=== PATIENT | male | born 1960 | race Caucasian/White ===

== ENCOUNTER 2017-11-06 12:22 | Inpatient (IN) | payer OTHER, MEDICARE ==
[~2017-11-06] VITALS: Ht 180.3 cm; Wt 96.4 kg
[2017-11-06 14:30] VITALS: BP 196/93; PULSE 76; RESP 18; TEMP 98; O2SAT 97
[2017-11-06] MEDS ORDERED: SODIUM CHLORIDE 0.9% FLUSH 10 ML FLUSH IV FLUSH PRN (16:45)
[2017-11-06] MEDS ORDERED: NALOXONE HCL 0.4 MG/ML AMP IV PUSH PRN (16:45)
[2017-11-06] MEDS ORDERED: Post-op Orders (for Pharmacy) XX ONE (16:45)
[2017-11-06] MEDS ORDERED: ONDANSETRON HCL 4 MG/2 ML VIAL IV PUSH PRN (16:45)
[2017-11-06] MEDS: ACETAMINOPHEN/HYDROcodone 325 MG/5 MG TAB PO PRN (17:13)
--- NOTE | 2017-11-06 17:33 | MH ---
cc: Sofy Marquez MD DATE OF ADMISSION: 11/06/2017 ADMITTING DIAGNOSES: Peripheral vascular disease, gangrene of the left foot, ischemia of both legs. HISTORY OF PRESENT ILLNESS: This 57-year-old male is referred to me from Dr. Ovalle's office for evaluation for gangrene of the foot. The patient has a very complex history of peripheral vascular disease. He has had problems since early 1999, has had numerous surgeries done in 2-3 hospitals in [place] and then came down here and had several surgeries down here. This included bilateral femoral popliteal bypasses, bilateral fem to distal in situ bypasses, both of those clotted off. The patient had several angioplasties and stents placed into the iliac arteries and distal vessels. Finally, now patient presents with a gangrenous left foot. PAST MEDICAL HISTORY: Also that of hypertension, hyperlipidemia and severe noncompliance with medical therapy. SOCIAL HISTORY: The patient drinks and smokes about 2 packs a day continuously. MEDICATIONS: Can be found in the record, but the patient is very irregular in taking those, has 3 pain management specialists that are managing his pain, 2 in [place] and 1 [place]. On narcotics at home. PHYSICAL EXAMINATION: GENERAL: Reveals a 57-year-old male. HEENT: Head normocephalic. No trauma to the head. Pupils equal, reactive. Extraocular muscles intact. NECK: Bilateral carotid pulses and a right-sided bruit III/. CHEST: Bilateral breath sounds, decreased throughout both lung ribeiro consistent with moderate COPD. HEART: Regular rate and rhythm. ABDOMEN: Soft with active bowel sounds. No masses. No rebound, no guarding, no referred tenderness. No lesions. Pelvis is stable. EXTREMITIES: The patient has no palpable femoral, popliteal, dorsalis pedis or posterior tibial pulses. He has a dopplerable weak dorsalis pedis on the right, very weak posterior tibial on the right and popliteal on the right and femoral pulse I could not even Doppler for some reason. On the left, the patient has a weak dopplerable femoral pulse. He has popliteal pulse which is barely audible and no distal pulses from there. Foot is red with gangrene of the forefoot and osteomyelitis on most recent scan of the metatarsal and tarsal bones. The patient is noncompliant with antibiotics as well. NEUROLOGIC: Grossly intact. IMPRESSION AND RECOMMENDATIONS: A 57-year-old male, noncompliant with medical therapy, severe vasculopath. At this point, there is nothing left to do and the patient requires below-knee amputation. A second opinion was rendered by Dr. Ovalle on 11/05/2017. MD PATRIZIA Ignacio/KEISHA , 05:06 PM , 05:32 PM MTDD
--- NOTE | 2017-11-06 18:23 | HHI.PR ---
Subjective Remarks Discomfort left LE Objective Vital Signs Date Time Temp Pulse Resp B/P (MAP) Pulse Ox O2 Delivery O2 Flow Rate FiO2 11/06/17 14:30 98.0 76 18 196/93 (127) 97 Objective Remarks left red swollen,poor cap refill necrotic dorsum of the foot Assessment and Plan Assessment and Plan Left foot gangrene Osteomyelitis severe vasculopath no DP pulse agree with Kristen Ferrara MD November 06, 2017 18:23
--- NOTE | 2017-11-06 18:30 | RADRPT ---
EXAM DATE: 11/06/2017 6:13 PM EDT AGE/SEX: 57 years / Male INDICATIONS: Evaluate for pneumonia, pneumothorax, or communicable diseases. CLINICAL DATA: This is the patient's initial encounter. Patient reports that signs and symptoms have been present for 1 day and indicates a pain score of 0/10. MEDICAL/SURGICAL HISTORY: None. None. COMPARISON: None. FINDINGS: A single AP view of the chest demonstrates the lungs to be symmetrically aerated without evidence of mass, infiltrate or effusion. The cardiomediastinal contours are unremarkable. Osseous structures a re intact. CONCLUSION: No acute cardiopulmonary disease. Electronically signed by: Inder Armenta MD 11/06/2017 6:28 PM EDT
[2017-11-06] MEDS: MORPHINE SULFATE 4 MG/ML INJ IV PUSH PRN ×2 (18:59→21:06)
[2017-11-06] MEDS: LEVOFLOXACIN 500 MG PREMIX INJ 100 ML IV SCH (19:07)
[2017-11-06] MEDS: SODIUM CHLOR 0.9% 1000 ML INJ 1,000 ML IV SCH (19:08)
[2017-11-06 20:00] VITALS: BP 188/89; PULSE 82; RESP 19; TEMP 97; O2SAT 99
[2017-11-06] MEDS: FAMOTIDINE 20 MG TAB PO SCH (21:05)
[2017-11-06] MEDS: SODIUM CHLORIDE 0.9% FLUSH 10 ML FLUSH IV FLUSH SCH (21:06)
[2017-11-06 22:30] VITALS: BP 171/80; PULSE 76; RESP 18; TEMP 97.5; O2SAT 94
[2017-11-07] VITALS (7 sets, daily range): BP systolic 166–181; BP diastolic 74–84; PULSE 72–94; RESP 18–20; TEMP 97–97.8; O2SAT 93–96
[2017-11-07] MEDS: MORPHINE SULFATE 4 MG/ML INJ IV PUSH PRN ×6 (00:32→23:06)
[2017-11-07 01:53] LABS: BASOPHIL # 0.1 TH/MM3 (0-0.2); BASOPHIL % 1.3 % (0.0-2.0); EOSINOPHIL # 0.2 TH/MM3 (0-0.4); EOSINOPHIL % 3.6 % (0.0-4.0); HEMATOCRIT 45.9 % (39.0-51.0); HEMOGLOBIN 15.6 GM/DL (13.0-17.0); LYMPH % 24.8 % (9.0-44.0); LYMPHOCYTE # 1.7 TH/MM3 (1.0-4.8); MEAN CELL VOLUME 91.1 FL (80.0-100.0); MEAN CORPUSCULAR HEMOGLOBIN 30.9 PG (27.0-34.0); MEAN CORPUSCULAR HGB CONC 33.9 % (32.0-36.0); MEAN PLATELET VOLUME 7.2 FL (7.0-11.0); MONO % 10.9 % (0.0-8.0); MONOCYTE # 0.7 TH/MM3 (0-0.9); NEUT % 59.4 % (16.0-70.0); PLATELET COUNT 263 TH/MM3 (150-450); RED BLOOD COUNT 5.04 MIL/MM3 (4.50-5.90); WHITE BLOOD COUNT 6.8 TH/MM3 (4.0-11.0)
[2017-11-07 02:05] LABS: INTERNATIONAL NORMALIZED RATIO 1.1 RATIO; PROTHROMBIN TIME - PATIENT 10.7 SEC (9.8-11.6)
[2017-11-07 02:06] LABS: BICARBONATE 26.8 MEQ/L (21.0-32.0); CALCIUM 8.1 MG/DL (8.5-10.1); CREATININE 1.04 MG/DL (0.60-1.30)
[2017-11-07 02:10] LABS: DIRECT BILIRUBIN ADULT 0.2 MG/DL (0.0-0.2); INDIRECT BILIRUBIN 0.4 MG/DL (0.0-0.8); TOTAL BILIRUBIN ADULT 0.6 MG/DL (0.2-1.0); TOTAL PROTEIN 6.9 GM/DL (6.4-8.2)
[2017-11-07] MEDS: SODIUM CHLOR 0.9% 1000 ML INJ 1,000 ML IV SCH ×3 (02:45→13:07)
[2017-11-07] MEDS: FAMOTIDINE 20 MG TAB PO SCH ×2 (08:32→21:02)
[2017-11-07] MEDS: SODIUM CHLORIDE 0.9% FLUSH 10 ML FLUSH IV FLUSH SCH ×2 (08:33→21:02)
--- NOTE | 2017-11-07 08:55 | PD.CONS ---
HPI Service [facility] Consult Requested By Reason for Consult medical management Primary Care Physician Unknown Diagnoses: History of Present Illness patient is a 57 y/o male with history of PVD,CAD, hypertension chronic smoker who was admitted to the hospital for gangrene of the left foot. he says that it' s been going on for about a year. he was evaluated by vascular surgery and he will undergo BKA of the left leg. other than pain to the left foot , he denies any other complaints including chest pain, sob or dizziness. Review of Systems Constitutional: DENIES: Fever, Weight loss, Chills, Night Sweats Eyes: DENIES: Blurred vision, Diplopia, Vision loss, Double Vision Ears, nose, mouth, throat: DENIES: Tinnitus, Vertigo, Throat pain, Epistaxis Respiratory: DENIES: Apneas, Cough, Snoring, Wheezing, Hemoptysis, Sputum production, Shortness of breath Cardiovascular: DENIES: Chest pain, Palpitations, Syncope, Dyspnea on Exertion , PND, Lower Extremity Edema, Orthopnea, Claudication Gastrointestinal: DENIES: Abdominal pain, Black stools, Bloody stools, Constipation, Diarrhea, Nausea, Vomiting, Difficulty Swallowing, Anorexia Genitourinary: DENIES: Urinary frequency, Urgency, Hematuria, Dysuria Musculoskeletal: COMPLAINS OF: Joint pain (left foot.), DENIES: Muscle aches, Stiffness, Joint Swelling Integumentary: DENIES: Rash Neurologic: DENIES: Abnormal gait, Headache, Localized weakness, Paresthesias, Seizures, Speech Problems, Tremor, Poor Balance Psychiatric: DENIES: Anxiety, Confusion, Mood changes, Depression, Hallucinations, Agitation, Suicidal Ideation, Homicidal Ideation, Delusions Past Family Social History Allergies: Coded Allergies: No Known Allergies (Unverified , 11/06/17) Past Medical History PVD/ CAD/ hypertension Past Surgical History bypass on right lower extremity/ stent in both lower extremities. Reported Medications to be verified. Active Ordered Medications Inpatient Medications Acetaminophen/ Hydrocodone Bitart (Reseda 5-325 Mg) 1 tab Q4H PRN PO PAIN SCALE 3 TO 5; Start 11/06/17 at 16:45 Famotidine (Pepcid) 20 mg BID PO Last administered on 11/07/17at 08:32; Start at 21:00 Levofloxacin/ Dextrose 100 ml @ 100 mls/hr Q24H IV Last administered on at 19:07; Start 11/06/17 at 18:00 Miscellaneous Information [place] [place] STAT ONCE XX ; Start 11/06/17 at 16:45; Stop 11/06/17 at 17:00; Status DC Morphine Sulfate (Morphine Inj) 4 mg Q2H PRN IV PUSH 6-10 Last administered on 11/07/17at 08:33; Start 11/06/17 at 17:00 Naloxone HCl (Narcan Inj) 0.4 mg UNSCH PRN IV PUSH SEE LABEL COMMENTS; Start at 16:45 Ondansetron HCl (Zofran Inj) 4 mg Q6H PRN IV PUSH NAUSEA OR VOMITING; Start at 16:45 Sodium Chloride (NS Flush) 2 ml BID IV FLUSH Last administered on 11/07/17at 08: 33; Start 11/06/17 at 21:00 Family History not significant. Social History smokes a pack a day- drinks occasionally. Physical Exam Vital Signs Vital Signs Date Time Temp Pulse Resp B/P (MAP) Pulse Ox O2 Delivery O2 Flow Rate FiO2 11/07/17 05:30 Automatic Cuff 11/07/17 04:07 16 11/07/17 04:00 97.0 72 19 171/77 (108) 95 11/07/17 03:29 94 21 11/07/17 00:00 97.7 76 19 166/77 (106) 96 11/06/17 22:30 97.5 76 18 171/80 (110) 94 11/06/17 20:00 97.0 82 19 188/89 (122) 99 11/06/17 14:30 98.0 76 18 196/93 (127) 97 Physical Exam GENERAL: This is a well-nourished, well-developed patient, in no apparent distress. SKIN: gangrene of the left foot with some erythema over the left foot. HEAD: Atraumatic. Normocephalic. No temporal or scalp tenderness. EYES: Pupils equal round and reactive. Extraocular motions intact. No scleral icterus. No injection or drainage. ENT: Nose without bleeding, purulent drainage or septal hematoma. Throat without erythema, tonsillar hypertrophy or exudate. Uvula midline. Airway patent. NECK: Trachea midline. No JVD or lymphadenopathy. Supple, nontender, no meningeal signs. CARDIOVASCULAR: Regular rate and rhythm without murmurs, gallops, or rubs. RESPIRATORY: Clear to auscultation. Breath sounds equal bilaterally. No wheezes , rales, or rhonchi. GASTROINTESTINAL: Abdomen soft, non-tender, nondistended. No hepato-splenomegaly , or palpable masses. No guarding. MUSCULOSKELETAL: gangrene of the left foot. NEUROLOGICAL: Awake and alert. Cranial nerves II through XII intact. Motor and sensory grossly within normal limits. Five out of 5 muscle strength in all muscle groups. Normal speech. Laboratory Laboratory Tests Test 11/07/17 01:14 White Blood Count 6.8 Red Blood Count 5.04 Hemoglobin 15.6 Hematocrit 45.9 Mean Corpuscular Volume 91.1 Mean Corpuscular Hemoglobin 30.9 Mean Corpuscular Hemoglobin Concent 33.9 Red Cell Distribution Width 13.0 Platelet Count 263 Mean Platelet Volume 7.2 Neutrophils (%) (Auto) 59.4 Lymphocytes (%) (Auto) 24.8 Monocytes (%) (Auto) 10.9 Eosinophils (%) (Auto) 3.6 Basophils (%) (Auto) 1.3 Neutrophils # (Auto) 4.0 Lymphocytes # (Auto) 1.7 Monocytes # (Auto) 0.7 Eosinophils # (Auto) 0.2 Basophils # (Auto) 0.1 CBC Comment DIFF FINAL Differential Comment Prothrombin Time 10.7 Prothromb Time International Ratio 1.1 Blood Urea Nitrogen 12 Creatinine 1.04 Random Glucose 111 Total Protein 6.9 Albumin 3.0 Calcium Level 8.1 Alkaline Phosphatase 100 Aspartate Amino Transf (AST/SGOT) 17 Alanine Aminotransferase (ALT/SGPT) 24 Total Bilirubin 0.6 Direct Bilirubin 0.2 Sodium Level 139 Potassium Level 3.6 Chloride Level 103 Carbon Dioxide Level 26.8 Anion Gap 9 Estimat Glomerular Filtration Rate 73 Indirect Bilirubin 0.4 Result Diagram: 11/07/17 0114 11/07/17 0114 Imaging Last Impressions Chest X-Ray 11/06/17 0000 Signed Impressions: CONCLUSION: No acute cardiopulmonary disease. Assessment and Plan Assessment and Plan A/P -PVD with gangrene of the left foot for left BKA - per vascular surgery- counselled on smoking cessation. -CAD/ hypertension- will start on Vasotec prn- will verify the home meds. -DVT prophylaxis- pending surgical intervention thank you for the consult. Discussed Condition With the patient. Hans Branch MD November 07, 2017 08:55
[2017-11-07] MEDS ORDERED: ACETAMINOPHEN 1000 MG/100 ML 100 ML IV ONE (09:08)
[2017-11-07] MEDS ORDERED: KETAMINE HCL 50 MG/5 ML SYRINGE ONE (09:09)
[2017-11-07] MEDS ORDERED: FAMOTIDINE 20 MG/2 ML VIAL ONE (09:21)
--- NOTE | 2017-11-07 09:40 | RADRPT ---
EXAM DATE: 11/07/2017 8:46 AM EDT AGE/SEX: 57 years / Male INDICATIONS: Bruit. CLINICAL DATA: This is the patient's initial encounter. Patient reports that signs and symptoms have been present for 1 day and indicates a pain score of 0/10. MEDICAL/SURGICAL HISTORY: Gastroesophageal reflux disease. Peripheral vascular disease. Myocar dial infarction. Bilateral femoral popliteal bypasses. Bilateral lower extremity stents. Gangrene lef t foot. . Angioplasty with stent/iliac and distal arteries. COMPARISON: No prior [facility] exams available for comparison. VELOCITY PARAMETERS: ICA/CCA Ratio: Right 1.0 , Left 1.2 ICA: Right 106 cm/sec, Left 95 cm/sec CCA: Right 102 cm/sec, Left 79 cm/sec ECA: Right 107 cm/sec, Left 497 cm/sec Vertebral: Right 50 cm/sec antegrade, Left 44 cm/sec antegrade FINDINGS: Right Carotid: Mild heterogeneous plaque is identified. There is no significant stenosis or spectral broadening. Left Carotid: Mild heterogeneous plaque is identified there is no significant stenosis or spectral b roadening. Other: Antegrade flow is identified in the vertebral arteries. CONCLUSION: 1. Right Internal Carotid Artery: Mild carotid plaque without evidence of hemodynamically significan t stenosis. 2. Left Internal Carotid Artery: Mild carotid plaque without evidence of hemodynamically significant stenosis. 3. Antegrade flow both vertebral arteries. Electronically signed by: Preston Sepulveda MD 11/07/2017 9:39 AM EDT
[2017-11-07] MEDS ORDERED: ceFAZolin 2 GM PREMIX 0 ML ONE (09:50)
[2017-11-07] MEDS ORDERED: BUPIVACAINE HCL PF 0.5% 30 ML VIAL ONE (09:57)
[2017-11-07] MEDS ORDERED: PROPOFOL 200 MG/20 ML AMP IV ONE (12:00)
[2017-11-07] MEDS ORDERED: DEXAMETHASONE SOD PHOS 4 MG/ML VIAL IV ONE (12:00)
[2017-11-07] MEDS ORDERED: KETOROLAC TROMETHAMINE 30 MG/ML (IVP) VIAL IV PUSH ONE (12:00)
[2017-11-07] MEDS ORDERED: ONDANSETRON HCL 4 MG/2 ML VIAL IV PUSH ONE (12:00)
[2017-11-07] MEDS ORDERED: PHENYLEPH/NS 1000 MCG/10 ML SYR IV ONE (12:00)
[2017-11-07] MEDS ORDERED: SUCCINYLCHOLINE CHLORIDE 200 MG/10 ML VIAL IV ONE (12:00)
[2017-11-07] MEDS ORDERED: ePHEDrine/NS 25 MG/5 ML SYRINGE IV ONE (12:00)
[2017-11-07] MEDS ORDERED: GABA600T PO (12:04)
[2017-11-07] MEDS ORDERED: TRAM50TA PO (12:05)
[2017-11-07] MEDS ORDERED: ZOLP10TA3 PO (12:06)
[2017-11-07] MEDS ORDERED: ATOR40TA16 PO (12:07)
[2017-11-07] MEDS ORDERED: CARV6.252 PO (12:08)
[2017-11-07] MEDS ORDERED: HYDR-3583 (12:08)
[2017-11-07] MEDS ORDERED: RANI150T PO (12:09)
[2017-11-07] MEDS ORDERED: WARF-23 PO (12:10)
[2017-11-07] MEDS ORDERED: DO NOT ADM ANY ANTICOAGULANT DRUGS PRN (12:23)
[2017-11-07] MEDS ORDERED: *RESP: ALBUTEROL 2.5 MG/3 ML NEB (PRN) PERIprocedural Use ONLY NEB ONE (12:28)
[2017-11-07] MEDS ORDERED: MIDAZOLAM HCL 2 MG/2 ML VIAL ONE (12:31)
[2017-11-07] MEDS: LEVOFLOXACIN 500 MG PREMIX INJ 100 ML IV SCH (16:50)
--- NOTE | 2017-11-07 16:52 | MP ---
cc: Sofy Marquez MD, Slobodan MD DATE OF OPERATION: 11/07/2017 PREOPERATIVE DIAGNOSES: Peripheral vascular disease, severe ischemia of the left leg and gangrene of the left foot with cellulitis and osteomyelitis. POSTOPERATIVE DIAGNOSES: Peripheral vascular disease, severe ischemia of the left leg and gangrene of the left foot with cellulitis and osteomyelitis. PROCEDURE: Left below-knee amputation. SURGEON: Sofy Marquez MD ANESTHESIA: General. ESTIMATED BLOOD LOSS: 150 mL INDICATIONS FOR PROCEDURE: This pleasant had 57 year-old gentleman who underwent a slew of operations, open and endovascular, in the last 10-15 years in various hospitals in [place] and here. I was asked kindly by Dr. Ovalle to render a second opinion on the patient and then proceed with surgery, if this was the rendering. Dr. Ovalle felt that the patient should amputation and I agree with the same. PROCEDURE IN DETAIL: The patient was prepped and draped in usual fashion. The outline of the incision was marked with a silk string indentation in the skin. Then, incision is made with a 10-blade anterior to the tibia and then carried down laterally and posteriorly in the form of a flap. This is deepened down with the cautery medially and laterally to the tibia and down to the fibula. Anterior tibial artery and veins are divided and ligated with 0 Vicryl stick ties. The tibia and fibula are now freed up from the periosteum by periosteal elevator and then transected with an oscillating saw. The tibioperoneal trunk vessels are individually ligated with 0 Vicryl stick ties just distal. The sciatic nerve is allowed to retract i.e. anterior tibial nerve. Area irrigated with copious amounts of saline. Meticulous hemostasis obtained. The posterior flap is now inspected and washed out with copious amounts of saline and flipped anteriorly and then repair incision closed with 0 Vicryl for deep fascia, superficial fascia, 2-0 Prolene for the skin. Dressing applied. The patient tolerated the procedure well. Tourniquet time 3 minutes. MD PATRIZIA Ignacio/ , 04:30 PM , 04:51 PM
--- NOTE | 2017-11-07 18:05 | EKG ---
Date Performed: 11/06/2017 Time Performed: 18:25:06 PTAGE: 57 years EKG: Sinus rhythm MARKED LEFT AXIS DEVIATION INCOMPLETE RIGHT BUNDLE BRANCH BLOCK ABNORMAL ECG NO PREVIOUS TRACING DOCTOR: Ariana Chris Interpretating Date/Time 11/07/2017 17:59:18
[2017-11-07] MEDS: CARVEDILOL 6.25 MG TAB PO SCH (21:02)
[2017-11-07] MEDS: ATORVASTATIN 40 MG TAB PO SCH (21:02)
[2017-11-07] MEDS: ZOLPIDEM TARTRATE 10 MG TAB PO PRN (21:02)
[2017-11-07] MEDS: ACETAMINOPHEN/HYDROcodone 325 MG/5 MG TAB PO PRN (22:00)
[2017-11-08] VITALS (7 sets, daily range): BP systolic 120–192; BP diastolic 58–89; PULSE 70–77; RESP 17–20; TEMP 97–98.1; O2SAT 93–98
[2017-11-08] MEDS: MORPHINE SULFATE 4 MG/ML INJ IV PUSH PRN ×6 (05:17→21:10)
[2017-11-08 07:25] LABS: AUTOMATED NEUTROPHIL # 12.7 TH/MM3 (1.8-7.7); BASOPHIL % 0.2 % (0.0-2.0); EOSINOPHIL % 0.1 % (0.0-4.0); HEMATOCRIT 40.5 % (39.0-51.0); HEMOGLOBIN 13.8 GM/DL (13.0-17.0); LYMPH % 8.2 % (9.0-44.0); LYMPHOCYTE # 1.2 TH/MM3 (1.0-4.8); MEAN CELL VOLUME 91.4 FL (80.0-100.0); MEAN PLATELET VOLUME 7.3 FL (7.0-11.0); MONO % 5.2 % (0.0-8.0); MONOCYTE # 0.8 TH/MM3 (0-0.9); NEUT % 86.3 % (16.0-70.0); PLATELET COUNT 301 TH/MM3 (150-450); RED BLOOD COUNT 4.43 MIL/MM3 (4.50-5.90); WHITE BLOOD COUNT 14.8 TH/MM3 (4.0-11.0)
[2017-11-08 07:52] LABS: BICARBONATE 25.5 MEQ/L (21.0-32.0); CALCIUM 8.1 MG/DL (8.5-10.1); CREATININE 1.03 MG/DL (0.60-1.30)
[2017-11-08] MEDS: CARVEDILOL 6.25 MG TAB PO SCH ×2 (07:52→21:10)
[2017-11-08] MEDS: FAMOTIDINE 20 MG TAB PO SCH ×2 (07:52→21:10)
[2017-11-08] MEDS: GABAPENTIN 300 MG CAP PO SCH ×3 (07:52→17:07)
[2017-11-08] MEDS: SODIUM CHLOR 0.9% 1000 ML INJ 1,000 ML IV SCH ×2 (07:53→17:07)
[2017-11-08] MEDS: SODIUM CHLORIDE 0.9% FLUSH 10 ML FLUSH IV FLUSH SCH ×2 (07:53→21:10)
[2017-11-08] MEDS: DOCUSATE SODIUM 50 MG/SENNA 8.6 MG TAB PO SCH ×2 (12:15→21:00)
--- NOTE | 2017-11-08 12:17 | HHI.PR ---
Subjective Remarks The patient was anxious to go home. He said he was still in pain and was not taking the pain medications the way he wanted to. He wanted to talk to somebody about a prosthesis. Discussed with nursing at the bedside. Objective Vitals Vital Signs Date Time Temp Pulse Resp B/P (MAP) Pulse Ox O2 Delivery O2 Flow Rate FiO2 11/08/17 09:15 98 11/08/17 08:00 97.7 73 19 129/64 (85) 94 11/08/17 05:59 97.0 77 17 169/79 (109) 95 11/08/17 00:00 97.5 73 17 163/89 (113) 93 11/07/17 20:00 97.8 94 18 181/84 (116) 94 11/07/17 16:00 97.1 76 18 169/81 (110) 93 11/07/17 15:59 95 21 11/07/17 13:15 98.2 84 14 166/81 (109) 95 Nasal Cannula 3 11/07/17 13:00 84 13 160/80 (106) 94 Nasal Cannula 3 11/07/17 12:45 87 18 154/82 (106) 96 Nasal Cannula 3 11/07/17 12:30 93 18 111/67 (82) 96 Nasal Cannula 4 11/07/17 12:21 98.2 91 18 110/65 (80) 97 Simple Mask 8 I/O 11/07/17 11/07/17 11/07/17 11/08/17 11/08/17 11/08/17 06:59 14:59 22:59 06:59 14:59 22:59 Intake Total 0 ml 1100 ml 240 ml Output Total 1250 ml 200 ml 1300 ml 900 ml Balance -1250 ml 900 ml -1060 ml -900 ml Intake Oral 0 ml 0 ml 240 ml IV Total 0 ml Other 1100 ml Output Urine Total 1250 ml 1300 ml 900 ml Estimated Blood Loss 200 ml # Voids 0 1 # Bowel Movements 0 Result Diagram: 11/08/17 0640 11/08/17 0640 Imaging Last Impressions Carotid Artery Ultrasound 11/07/17 0000 Signed Impressions: CONCLUSION: 1. Right Internal Carotid Artery: Mild carotid plaque without evidence of hemo dynamically significant stenosis. 2. Left Internal Carotid Artery: Mild carotid plaque without evidence of hemod ynamically significant stenosis. 3. Antegrade flow both vertebral arteries. Chest X-Ray 11/06/17 0000 Signed Impressions: CONCLUSION: No acute cardiopulmonary disease. Objective Remarks GENERAL: This is a well-nourished, well-developed patient, in no apparent distress. HEAD: Atraumatic. Normocephalic. No temporal or scalp tenderness. EYES: Pupils equal round and reactive. Extraocular motions intact. No scleral icterus. No injection or drainage. ENT: Nose without bleeding, purulent drainage or septal hematoma. Throat without erythema, tonsillar hypertrophy or exudate. Uvula midline. Airway patent. NECK: Trachea midline. No JVD or lymphadenopathy. Supple, nontender, no meningeal signs. CARDIOVASCULAR: Regular rate and rhythm without murmurs, gallops, or rubs. RESPIRATORY: Clear to auscultation. Breath sounds equal bilaterally. No wheezes , rales, or rhonchi. GASTROINTESTINAL: Abdomen non-tender, distended. No hepato-splenomegaly, or palpable masses. No guarding. MUSCULOSKELETAL: Left foot is bandaged. NEUROLOGICAL: Awake and alert. Cranial nerves II through XII intact. Motor and sensory grossly within normal limits. Five out of 5 muscle strength in all muscle groups. Normal speech. Procedures Left BKA Medications and IVs Current Medications Medications (Trade) Dose Ordered Sig/Nithya Route Start Time Stop Time Status Last Admin Sodium Chloride 1,000 ml @ 100 mls/hr Q10H IV 11/06/17 16:45 11/08/17 07:53 (NS Flush) 2 ml UNSCH PRN IV FLUSH 11/06/17 16:45 (NS Flush) 2 ml BID IV FLUSH 11/06/17 21:00 11/07/17 21:02 (Zofran Inj) 4 mg Q6H PRN IV PUSH 11/06/17 16:45 (Pepcid) 20 mg BID PO 11/06/17 21:00 11/08/17 07:52 (Narcan Inj) 0.4 mg UNSCH PRN IV PUSH 11/06/17 16:45 Levofloxacin/ Dextrose 100 ml @ 100 mls/hr Q24H IV 11/06/17 18:00 11/07/17 16:50 (Vasotec Inj) 1.25 mg Q8H PRN IV PUSH 11/07/17 09:00 ([facility] [place] Information) ALL NURSING DEPARTME... UNSCH PRN .XX 11/07/17 12:23 11/08/17 12:22 (Lipitor) 40 mg HS PO 11/07/17 21:00 11/07/17 21:02 (Coreg) 6.25 mg BID PO 11/07/17 21:00 11/08/17 07:52 (Neurontin) 600 mg TID PO 11/08/17 09:00 11/08/17 12:01 (Ambien) 10 mg HS PRN PO 11/07/17 19:30 11/07/17 21:02 A/P Assessment and Plan PVD With gangrene of the left foot. S/p left BKA per vascular surgery 11/07. - pain control with a bowel regimen. - PT/ OT. - incentive spirometry. - counselled on smoking cessation. CAD/ hypertension Blood pressure elevated at times. - will start on Vasotec prn. Leukocytosis Likely a stress response. - follow CBC. DVT prophylaxis: Per surgery Inder Sawyer DO November 08, 2017 12:17
[2017-11-08] MEDS: ENALAPRILAT 1.25 MG/ML VIAL IV PUSH PRN (15:11)
[2017-11-08] MEDS: ACETAMINOPHEN/HYDROcodone 325 MG/10 MG TAB PO PRN ×3 (15:12→23:18)
[2017-11-08] MEDS: LEVOFLOXACIN 500 MG PREMIX INJ 100 ML IV SCH (17:07)
--- NOTE | 2017-11-08 18:55 | PD.CAR.PN ---
CVT Progress Note Subjective/Hospital Course: 11/08/2017 Status post left BKA for the gangrene of the foot and osteomyelitis Dressing intact and clean Patient doing okay Hemoglobin remains stable Continue current care We will keep original dressing on until Friday Objective: Vital Signs Date Time Temp Pulse Resp B/P (MAP) Pulse Ox O2 Delivery O2 Flow Rate FiO2 11/08/17 16:00 97.8 70 17 192/81 (118) 93 11/08/17 12:00 97.8 72 19 145/77 (99) 98 11/08/17 09:15 98 11/08/17 08:00 97.7 73 19 129/64 (85) 94 11/08/17 05:59 97.0 77 17 169/79 (109) 95 11/08/17 00:00 97.5 73 17 163/89 (113) 93 11/07/17 20:00 97.8 94 18 181/84 (116) 94 Result Diagram: 11/08/17 0640 11/08/17 0640 Sofy Marquez MD November 08, 2017 18:55
[2017-11-08] MEDS: ATORVASTATIN 40 MG TAB PO SCH (21:10)
[2017-11-08] MEDS: ZOLPIDEM TARTRATE 10 MG TAB PO PRN (23:18)
[2017-11-09] VITALS (9 sets, daily range): BP systolic 119–182; BP diastolic 58–97; PULSE 62–82; RESP 17–22; TEMP 96.9–98.4; O2SAT 91–98
[2017-11-09] MEDS: MORPHINE SULFATE 4 MG/ML INJ IV PUSH PRN ×7 (01:29→22:28)
[2017-11-09] MEDS: ACETAMINOPHEN/HYDROcodone 325 MG/10 MG TAB PO PRN ×5 (04:01→20:16)
[2017-11-09] MEDS: SODIUM CHLOR 0.9% 1000 ML INJ 1,000 ML IV SCH ×2 (04:02→14:28)
[2017-11-09 06:24] LABS: BASOPHIL # 0.1 TH/MM3 (0-0.2); BASOPHIL % 0.8 % (0.0-2.0); EOSINOPHIL # 0.1 TH/MM3 (0-0.4); EOSINOPHIL % 1.5 % (0.0-4.0); HEMATOCRIT 39.7 % (39.0-51.0); HEMOGLOBIN 13.4 GM/DL (13.0-17.0); LYMPH % 27.9 % (9.0-44.0); LYMPHOCYTE # 2.7 TH/MM3 (1.0-4.8); MEAN CELL VOLUME 91.2 FL (80.0-100.0); MEAN CORPUSCULAR HEMOGLOBIN 30.8 PG (27.0-34.0); MEAN CORPUSCULAR HGB CONC 33.7 % (32.0-36.0); MEAN PLATELET VOLUME 7.5 FL (7.0-11.0); MONO % 7.9 % (0.0-8.0); MONOCYTE # 0.8 TH/MM3 (0-0.9); NEUT % 61.9 % (16.0-70.0); PLATELET COUNT 311 TH/MM3 (150-450); RED BLOOD COUNT 4.35 MIL/MM3 (4.50-5.90); WHITE BLOOD COUNT 9.7 TH/MM3 (4.0-11.0)
[2017-11-09] MEDS: DOCUSATE SODIUM 50 MG/SENNA 8.6 MG TAB PO SCH ×2 (08:10→20:18)
[2017-11-09] MEDS: GABAPENTIN 300 MG CAP PO SCH ×3 (08:10→16:49)
[2017-11-09] MEDS: CARVEDILOL 6.25 MG TAB PO SCH (08:10)
[2017-11-09] MEDS: FAMOTIDINE 20 MG TAB PO SCH ×2 (08:10→20:16)
[2017-11-09] MEDS: SODIUM CHLORIDE 0.9% FLUSH 10 ML FLUSH IV FLUSH SCH ×2 (09:00→20:19)
[2017-11-09] MEDS: NICOTINE 14 MG/24 HR PATCH T-DERMAL SCH (11:00)
[2017-11-09] MEDS: ENALAPRILAT 1.25 MG/ML VIAL IV PUSH PRN (12:20)
[2017-11-09] MEDS ORDERED: CARVEDILOL 6.25 MG TAB PO ONE (15:45)
--- NOTE | 2017-11-09 16:39 | HHI.PR ---
Subjective Remarks The patient said that he wanted his pain medication as his pain was an 8 out of 10 in severity. He wanted to know when his bandage would be changed. He had no other acute complaints. Discussed with nursing. Objective Vitals Vital Signs Date Time Temp Pulse Resp B/P (MAP) Pulse Ox O2 Delivery O2 Flow Rate FiO2 11/09/17 12:00 97.9 71 17 182/84 (116) 95 11/09/17 09:47 145/79 (101) 11/09/17 08:00 98.4 75 17 119/58 (78) 91 11/09/17 05:53 18 11/09/17 05:18 20 11/09/17 04:00 97.9 63 18 157/79 (105) 95 11/09/17 00:00 97.5 62 20 135/65 (88) 97 11/08/17 20:00 98.1 71 20 120/58 (78) 97 I/O 11/08/17 11/08/17 11/08/17 11/09/17 11/09/17 11/09/17 07:00 15:00 23:00 07:00 15:00 23:00 Intake Total 240 ml 1000 ml 1340 ml 360 ml Output Total 1300 ml 900 ml 900 ml 1250 ml Balance -1060 ml 100 ml 440 ml -890 ml Intake Oral 240 ml 1240 ml 360 ml IV Total 1000 ml 100 ml Output Urine Total 1300 ml 900 ml 900 ml 1250 ml # Voids 1 # Bowel Movements 1 0 Result Diagram: 11/09/17 0445 11/08/17 0640 Imaging Last Impressions Carotid Artery Ultrasound 11/07/17 0000 Signed Impressions: CONCLUSION: 1. Right Internal Carotid Artery: Mild carotid plaque without evidence of hemo dynamically significant stenosis. 2. Left Internal Carotid Artery: Mild carotid plaque without evidence of hemod ynamically significant stenosis. 3. Antegrade flow both vertebral arteries. Chest X-Ray 11/06/17 0000 Signed Impressions: CONCLUSION: No acute cardiopulmonary disease. Objective Remarks GENERAL: This is a well-nourished, well-developed patient, in no apparent distress. HEAD: Atraumatic. Normocephalic. No temporal or scalp tenderness. EYES: Pupils equal round and reactive. Extraocular motions intact. No scleral icterus. No injection or drainage. ENT: Nose without bleeding, purulent drainage or septal hematoma. Throat without erythema, tonsillar hypertrophy or exudate. Uvula midline. Airway patent. NECK: Trachea midline. No JVD or lymphadenopathy. Supple, nontender, no meningeal signs. CARDIOVASCULAR: Regular rate and rhythm without murmurs, gallops, or rubs. RESPIRATORY: Clear to auscultation. Breath sounds equal bilaterally. No wheezes , rales, or rhonchi. GASTROINTESTINAL: Abdomen non-tender, distended. No hepato-splenomegaly, or palpable masses. No guarding. MUSCULOSKELETAL: Left BKA. NEUROLOGICAL: Awake and alert. Cranial nerves II through XII intact. Motor and sensory grossly within normal limits. Five out of 5 muscle strength in all muscle groups. Normal speech. Procedures Left BKA A/P Assessment and Plan PVD With gangrene of the left foot. S/p left BKA per vascular surgery 11/07. - pain control with a bowel regimen. - PT/ OT. - incentive spirometry. - counselled on smoking cessation. - wound management per primary. CAD/ hypertension Blood pressure elevated at times. Exacerbated by pain. - will start on Vasotec prn. - increase Coreg to 12.5 mg BID. - pain control. Hyperglycemia Likely a stress response. - follow BMP as needed. DVT prophylaxis: Per surgery Inder Sawyer DO November 09, 2017 16:39
[2017-11-09] MEDS: LEVOFLOXACIN 500 MG PREMIX INJ 100 ML IV SCH (16:50)
[2017-11-09] MEDS: ZOLPIDEM TARTRATE 10 MG TAB PO PRN (20:16)
[2017-11-09] MEDS: ATORVASTATIN 40 MG TAB PO SCH (20:18)
[2017-11-09] MEDS: CARVEDILOL 12.5 MG TAB PO SCH (20:19)
[2017-11-10] VITALS: BP 122/66; PULSE 79; RESP 22; TEMP 97.8; O2SAT 94
[2017-11-10] MEDS: ACETAMINOPHEN/HYDROcodone 325 MG/10 MG TAB PO PRN ×3 (00:20→09:15)
[2017-11-10] MEDS: MORPHINE SULFATE 4 MG/ML INJ IV PUSH PRN ×3 (03:04→11:36)
[2017-11-10 08:00] VITALS: BP 166/81; PULSE 78; RESP 19; TEMP 98.8; O2SAT 92
[2017-11-10] MEDS: REMOVE OLD PATCH T-DERMAL SCH (09:00)
[2017-11-10] MEDS: NICOTINE 14 MG/24 HR PATCH T-DERMAL SCH (09:00)
[2017-11-10] MEDS: FAMOTIDINE 20 MG TAB PO SCH ×2 (09:14→19:47)
[2017-11-10] MEDS: DOCUSATE SODIUM 50 MG/SENNA 8.6 MG TAB PO SCH ×2 (09:14→19:47)
[2017-11-10] MEDS: CARVEDILOL 12.5 MG TAB PO SCH ×2 (09:15→19:47)
[2017-11-10] MEDS: GABAPENTIN 300 MG CAP PO SCH ×3 (09:15→17:33)
[2017-11-10] MEDS: SODIUM CHLORIDE 0.9% FLUSH 10 ML FLUSH IV FLUSH SCH ×2 (09:15→19:49)
--- NOTE | 2017-11-10 10:45 | PD.CAR.PN ---
CVT Progress Note Subjective/Hospital Course: 11/08/2017 Status post left BKA for the gangrene of the foot and osteomyelitis Dressing intact and clean Patient doing okay Hemoglobin remains stable Continue current care We will keep original dressing on until Friday11/10/2017 Incision clean and dry DC original dressing We will start change dressings and patient can be DC'd to skilled nursing and it time Objective: Vital Signs Date Time Temp Pulse Resp B/P (MAP) Pulse Ox O2 Delivery O2 Flow Rate FiO2 11/10/17 08:00 98.8 78 19 166/81 (109) 92 11/10/17 03:16 20 11/10/17 02:43 20 11/10/17 00:00 97.8 79 22 122/66 (84) 94 11/09/17 20:00 97.7 82 22 143/66 (91) 98 11/09/17 17:43 176/81 (112) 11/09/17 16:49 180/80 (113) 11/09/17 16:00 96.9 78 19 180/97 (124) 96 11/09/17 12:00 97.9 71 17 182/84 (116) 95 Result Diagram: 11/09/17 0445 11/08/17 0640 Sofy Marquez MD November 10, 2017 10:45
[2017-11-10 12:00] VITALS: BP 166/82; PULSE 83; RESP 19; TEMP 97.9; O2SAT 93
[2017-11-10] MEDS ORDERED: WALKER WHEELS/F1 MIS (12:52)
[2017-11-10] MEDS ORDERED: WHEEMIS3 (12:52)
--- NOTE | 2017-11-10 14:59 | HHI.PR ---
Subjective Remarks The pt wanted to go home. He said he wants his pain meds increased. He had no other acute complaints. Discussed with nursing. Objective Vitals Vital Signs Date Time Temp Pulse Resp B/P (MAP) Pulse Ox O2 Delivery O2 Flow Rate FiO2 11/10/17 12:00 97.9 83 19 166/82 (110) 93 11/10/17 08:00 98.8 78 19 166/81 (109) 92 11/10/17 03:16 20 11/10/17 02:43 20 11/10/17 00:00 97.8 79 22 122/66 (84) 94 11/09/17 20:00 97.7 82 22 143/66 (91) 98 11/09/17 17:43 176/81 (112) 11/09/17 16:49 180/80 (113) 11/09/17 16:00 96.9 78 19 180/97 (124) 96 I/O 11/09/17 11/09/17 11/09/17 11/10/17 11/10/17 11/10/17 06:59 14:59 22:59 06:59 14:59 22:59 Intake Total 360 ml 1180 ml 0 ml Output Total 1250 ml 1425 ml 1900 ml 675 ml Balance -890 ml -245 ml -1900 ml -675 ml Intake Oral 360 ml 1080 ml 0 ml IV Total 100 ml Output Urine Total 1250 ml 1425 ml 1900 ml 675 ml # Bowel Movements 0 0 0 Result Diagram: 11/09/17 0445 11/08/17 0640 Imaging Last Impressions Carotid Artery Ultrasound 11/07/17 0000 Signed Impressions: CONCLUSION: 1. Right Internal Carotid Artery: Mild carotid plaque without evidence of hemo dynamically significant stenosis. 2. Left Internal Carotid Artery: Mild carotid plaque without evidence of hemod ynamically significant stenosis. 3. Antegrade flow both vertebral arteries. Chest X-Ray 11/06/17 0000 Signed Impressions: CONCLUSION: No acute cardiopulmonary disease. Objective Remarks GENERAL: This is a well-nourished, well-developed patient, in no apparent distress. HEAD: Atraumatic. Normocephalic. No temporal or scalp tenderness. EYES: Pupils equal round and reactive. Extraocular motions intact. No scleral icterus. No injection or drainage. ENT: Nose without bleeding, purulent drainage or septal hematoma. Throat without erythema, tonsillar hypertrophy or exudate. Uvula midline. Airway patent. NECK: Trachea midline. No JVD or lymphadenopathy. Supple, nontender, no meningeal signs. CARDIOVASCULAR: Regular rate and rhythm without murmurs, gallops, or rubs. RESPIRATORY: Clear to auscultation. Breath sounds equal bilaterally. No wheezes , rales, or rhonchi. GASTROINTESTINAL: Abdomen non-tender, distended. No hepato-splenomegaly, or palpable masses. No guarding. MUSCULOSKELETAL: Left BKA. NEUROLOGICAL: Awake and alert. Cranial nerves II through XII intact. Motor and sensory grossly within normal limits. Five out of 5 muscle strength in all muscle groups. Normal speech. Procedures Left BKA A/P Assessment and Plan PVD With gangrene of the left foot. S/p left BKA per vascular surgery 11/07. - pain control with a bowel regimen. - PT/ OT. - incentive spirometry. - counselled on smoking cessation. - wound management per primary. - front wheeled walker and wheelchair ordered. CAD/ hypertension Blood pressure elevated at times. Exacerbated by pain. Stable. - will start on Vasotec prn. - increased Coreg to 12.5 mg BID. - pain control. Hyperglycemia Likely a stress response. - follow BMP as needed. DVT prophylaxis: Per surgery Discharge Planning Per primary Inder Sawyer DO November 10, 2017 14:59
[2017-11-10] MEDS ORDERED: ACETAMINOPHEN/HYDROcodone 325 MG/7.5 MG TAB PO PRN (15:00)
[2017-11-10] MEDS: ACETAMINOPHEN/HYDROcodone 325 MG/7.5 MG TAB PO PRN ×2 (15:01→21:16)
[2017-11-10 16:00] VITALS: BP 140/67; PULSE 81; RESP 18; TEMP 97.9; O2SAT 97
[2017-11-10] MEDS: ACETAMINOPHEN/HYDROcodone 325 MG/5 MG TAB PO PRN (17:34)
[2017-11-10] MEDS: LEVOFLOXACIN 500 MG PREMIX INJ 100 ML IV SCH (17:34)
[2017-11-10] MEDS: ATORVASTATIN 40 MG TAB PO SCH (19:49)
[2017-11-10 20:00] VITALS: BP 130/80; PULSE 83; RESP 18; TEMP 97.8; O2SAT 97
[2017-11-11] VITALS: BP 142/72; PULSE 83; RESP 20; TEMP 97.9; O2SAT 95
[2017-11-11] MEDS: ACETAMINOPHEN/HYDROcodone 325 MG/7.5 MG TAB PO PRN ×2 (03:35→12:15)
[2017-11-11] MEDS: ACETAMINOPHEN/HYDROcodone 325 MG/5 MG TAB PO PRN (04:54)
[2017-11-11] MEDS: DOCUSATE SODIUM 50 MG/SENNA 8.6 MG TAB PO SCH (07:53)
[2017-11-11] MEDS: REMOVE OLD PATCH T-DERMAL SCH (07:53)
[2017-11-11] MEDS: GABAPENTIN 300 MG CAP PO SCH ×3 (07:53→18:06)
[2017-11-11] MEDS: CARVEDILOL 12.5 MG TAB PO SCH (07:53)
[2017-11-11] MEDS: NICOTINE 14 MG/24 HR PATCH T-DERMAL SCH (07:53)
[2017-11-11] MEDS: SODIUM CHLORIDE 0.9% FLUSH 10 ML FLUSH IV FLUSH SCH (07:53)
[2017-11-11] MEDS: FAMOTIDINE 20 MG TAB PO SCH (07:53)
[2017-11-11 08:00] VITALS: BP 156/99; PULSE 95; RESP 18; TEMP 98.1; O2SAT 97
[2017-11-11 12:00] VITALS: BP 127/60; PULSE 78; RESP 19; TEMP 98.6; O2SAT 96
--- NOTE | 2017-11-11 15:31 | PD.CAR.PN ---
CVT Progress Note Subjective/Hospital Course: 11/08/2017 Status post left BKA for the gangrene of the foot and osteomyelitis Dressing intact and clean Patient doing okay Hemoglobin remains stable Continue current care We will keep original dressing on until Friday11/10/2017 Incision clean and dry DC original dressing We will start change dressings and patient can be DC'd to [facility] and it time 11/11/2017 Incision is clean and dry healing very nicely Patient has been advised to be very careful with incision and not hit it against an object because of it does the precarious blood supply may be impaired and skin may easily necrotized Patient will be DC'd today Spoken to the medical attending and apparently patient will have home health Follow-up with me in about 3 weeks in the office It should also be noted that the patient stated on admission that he was on Coumadin yet his INR /PT was normal turns out patient did not take Coumadin for a long time. In addition patient has pain medication i.e. narcotics written by 3 different physicians want in state and to out of state and therefore I will not write new prescriptions Objective: Vital Signs Date Time Temp Pulse Resp B/P (MAP) Pulse Ox O2 Delivery O2 Flow Rate FiO2 11/11/17 12:00 98.6 78 19 127/60 (82) 96 11/11/17 08:00 98.1 95 18 156/99 (118) 97 11/11/17 06:30 20 11/11/17 06:28 20 11/11/17 00:00 97.9 83 20 142/72 (95) 95 11/10/17 20:00 97.8 83 18 130/80 (97) 97 11/10/17 16:00 97.9 81 18 140/67 (91) 97 Result Diagram: 11/09/17 0445 11/08/17 0640 Sofy Marquez MD November 11, 2017 15:31
[2017-11-11 16:00] VITALS: BP 151/80; PULSE 82; RESP 18; TEMP 97.9; O2SAT 95
--- NOTE | 2017-11-11 16:17 | HHI.FF ---
Face to Face Verification Diagnosis: (1) S/P BKA (below knee amputation) Home Health Nursing Order: Wound care and dressing changes (Wash stump with soap water, pad dry dress with kerlex ROMY daily) Nursing assessment with vital signs (wash stump with soap water daily, dress dry with kerlex ROMY) I have seen patient Inder Snell on 11/11/17. My clinical findings support the need for the requested home health care services because: I certify that my clinical findings support that this patient is homebound because: Sofy Marquez MD November 11, 2017 16:17
[2017-11-11] MEDS: LEVOFLOXACIN 500 MG PREMIX INJ 100 ML IV SCH (17:44)
--- NOTE | 2017-11-11 17:59 | HHI.PR ---
Subjective Remarks The patient denies any major overnight events. Pain is controlled. Denies diarrhea, nausea, vomiting. Patient states he wants to go home. Objective Vitals Vital Signs Date Time Temp Pulse Resp B/P (MAP) Pulse Ox O2 Delivery O2 Flow Rate FiO2 11/11/17 16:00 97.9 82 18 151/80 (103) 95 11/11/17 12:00 98.6 78 19 127/60 (82) 96 11/11/17 08:00 98.1 95 18 156/99 (118) 97 11/11/17 06:30 20 11/11/17 06:28 20 11/11/17 00:00 97.9 83 20 142/72 (95) 95 11/10/17 20:00 97.8 83 18 130/80 (97) 97 I/O 11/10/17 11/10/17 11/10/17 11/11/17 11/11/17 11/11/17 07:00 15:00 23:00 07:00 15:00 23:00 Intake Total 0 ml 980 ml 240 ml Output Total 1900 ml 675 ml 1625 ml 850 ml Balance -1900 ml -675 ml -645 ml -610 ml Intake Oral 0 ml 880 ml 240 ml IV Total 100 ml Output Urine Total 1900 ml 675 ml 1625 ml 850 ml # Bowel Movements 0 0 Result Diagram: 11/09/17 0445 11/08/17 0640 Imaging Last Impressions Carotid Artery Ultrasound 11/07/17 0000 Signed Impressions: CONCLUSION: 1. Right Internal Carotid Artery: Mild carotid plaque without evidence of hemo dynamically significant stenosis. 2. Left Internal Carotid Artery: Mild carotid plaque without evidence of hemod ynamically significant stenosis. 3. Antegrade flow both vertebral arteries. Chest X-Ray 11/06/17 0000 Signed Impressions: CONCLUSION: No acute cardiopulmonary disease. Objective Remarks GENERAL: This is a well-nourished, well-developed patient, in no apparent distress. HEAD: Atraumatic. Normocephalic. No temporal or scalp tenderness. EYES: Pupils equal round and reactive. Extraocular motions intact. No scleral icterus. No injection or drainage. ENT: Nose without bleeding, purulent drainage or septal hematoma. Throat without erythema, tonsillar hypertrophy or exudate. Uvula midline. Airway patent. NECK: Trachea midline. No JVD or lymphadenopathy. Supple, nontender, no meningeal signs. CARDIOVASCULAR: Regular rate and rhythm without murmurs, gallops, or rubs. RESPIRATORY: Clear to auscultation. Breath sounds equal bilaterally. No wheezes , rales, or rhonchi. GASTROINTESTINAL: Abdomen non-tender, distended. No hepato-splenomegaly, or palpable masses. No guarding. MUSCULOSKELETAL: Left BKA. Other extremities without edema, joint tenderness. NEUROLOGICAL: Awake and alert. Cranial nerves II through XII intact. Motor and sensory grossly within normal limits. Five out of 5 muscle strength in all muscle groups. Normal speech. Procedures Left BKA A/P Assessment and Plan VD With gangrene of the left foot. S/p left BKA per vascular surgery 11/07. - pain control with a bowel regimen. - PT/ OT. - incentive spirometry. - counselled on smoking cessation. - wound management per primary. - front wheeled walker and wheelchair ordered. CAD/ hypertension Blood pressure elevated at times. Exacerbated by pain. Stable. -Continue Vasotec as needed. -Increase Coreg to 25 minutes p.o. twice daily since BP is still elevated into the 150 systolic. - pain control. Hyperglycemia Likely a stress response. - follow BMP as needed. DVT prophylaxis: Per surgery Discharge Planning Discharge as per primary. Patient cleared to be discharged by hospitalist. Tony Sepulveda MD November 11, 2017 17:59
[2017-11-11] MEDS ORDERED: CARVEDILOL 12.5 MG TAB PO SCH (21:00)
== END 2017-11-11 18:35 | disposition home health service (06) | DRG 240 ==
LOC: N04B 13:04 → N07B 11-07 12:26 → N07A 11-07 13:31
PROVIDERS: ADMIT Surgery; ATTEND Surgery
PROC: 0Y6J0Z1 Detachment at Left Lower Leg, High, Open Approach (ICD-10-PCS; principal; 2017-11-07 10:10)
DX: I70.262 Atherosclerosis of native arteries of extremities with gangrene, left leg (principal); I74.3 Embolism and thrombosis of arteries of the lower extremities; M86.8X7 Other osteomyelitis, ankle and foot; L03.116 Cellulitis of left lower limb; I10 Essential (primary) hypertension; E78.5 Hyperlipidemia, unspecified; I25.10 Atherosclerotic heart disease of native coronary artery without angina pectoris; R73.9 Hyperglycemia, unspecified; F17.210 Nicotine dependence, cigarettes, uncomplicated; Z91.14 Patient's other noncompliance with medication regimen; Z91.19 Patient's noncompliance with other medical treatment and regimen
CPT/HCPCS: 71045; 80048; 80076; 85025; 85610; 86850; 86900; 86901; 86920; 88307; 88311; 93005; 93880; 94150; 94664; J0131; J0330; J0690; J1100; J1885; J1956; J2250; J2270; J2370; J2405; J3010; J7030; J7613

== ENCOUNTER 2018-01-22 07:59 | Inpatient (IN) ==
[2018-01-22] MEDS ORDERED: Chlorhexidine Gluconate 2% 1 Pack (2 Cloths) TOPICAL SCH (09:15)
[2018-01-22] MEDS ORDERED: Metoprolol Tartrate 25 MG Tablet PO SCH (09:15)
--- NOTE | 2018-01-22 09:19 | XR ---
EXAM DATE: 01/22/2018 8:59 AM EDT AGE/SEX: 57 years / Male INDICATIONS: Evaluate for pneumonia, pneumothorax or communicable disease. Above the right knee ampu tation CLINICAL DATA: This is the patient's initial encounter. Patient reports that signs and symptoms have been present for 1 day and indicates a pain score of 0/10. MEDICAL/SURGICAL HISTORY: . Gastroesophageal reflux disease. Peripheral vascular disease. Myoca rdial infarction. Bilateral femoral popliteal bypasses. Bilateral lower extremity stents. Gangrene le ft foot. . Angioplasty with stent/iliac and distal arteries. . Right below the knee amputation COMPARISON: [facility] [place], CHEST SINGLE AP, 11/06/2017. . FINDINGS: A single AP view of the chest demonstrates the lungs to be symmetrically aerated without evidence of mass, infiltrate or effusion. The cardiomediastinal contours are unremarkable. Osseous structures a re intact. CONCLUSION: Negative examination. Electronically signed by: Ricco Whipple MD 01/22/2018 9:18 AM EDT
[2018-01-22 09:36] LABS: Baso # (Auto) 0.1 th/mm3 (0.0-0.2); Baso % (Auto) 1.7 % (0.0-2.0); Eos # (Auto) 0.1 th/mm3 (0.0-0.4); Eos % (Auto) 2.2 % (0.0-4.0); Hematocrit 45.2 % (39.0-51.0); Hemoglobin 15.4 gm/dL (13.0-17.0); Lymph # (Auto) 1.6 th/mm3 (1.0-4.8); Lymph % (Auto) 27.5 % (9.0-44.0); Mean Corpuscular HGB Conc 34.1 % (32.0-36.0); Mean Corpuscular Hemoglobin 30.3 pg (27.0-34.0); Mean Corpuscular Volume 88.7 fL (80.0-100.0); Mean Platelet Volume 6.9 fL (7.0-11.0); Mono # (Auto) 0.5 th/mm3 (0.0-0.9); Mono % (Auto) 8.2 % (0.0-8.0); Neut # (Auto) 3.6 th/mm3 (1.8-7.7); Neut % (Auto) 60.4 % (16.0-70.0); Platelet Count 291 th/mm3 (150-450); Red Blood Count 5.09 mil/mm3 (4.50-5.90); Red Cell Distribution Width 15.7 % (11.6-17.2); White Blood Count 5.9 th/mm3 (4.0-11.0)
[2018-01-22 09:45] LABS: INR 1.1 Ratio; Prothrombin Time 10.7 sec (9.8-11.6)
[2018-01-22 09:52] LABS: Albumin 3.5 g/dL (3.4-5.0); Anion Gap 9 meq/L (5-15); Aspartate Aminotransferase 12 U/L (15-37); Blood Urea Nitrogen 6 mg/dL (7-18); Calcium 9.2 mg/dL (8.5-10.1); Carbon Dioxide 25.4 meq/L (21.0-32.0); Chloride 101 meq/L (98-107); Glomerular Filtration Rate 79 mL/min (>89); Glucose,Random 95 mg/dL (74-106); Potassium 4.2 meq/L (3.5-5.1); Sodium 135 meq/L (136-145)
[2018-01-22 09:58] LABS: Alanine Aminotransferase 15 U/L (12-78); Alkaline Phosphatase 122 U/L (45-117); Total Protein 7.7 g/dL (6.4-8.2)
[2018-01-22] MEDS ORDERED: Sodium Chlor 0.9% Inj 500 ML IV.SIG SCH (10:00)
[2018-01-22] MEDS ORDERED: Lidocaine PF 1% Inj 5 ML Syringe INFILTRATN ONE (12:00)
[2018-01-22] MEDS ORDERED: Piperacil/Tazo 4.5 GM Premix 4.5 GM/100 ML BAG IV.SIG ONE (12:15)
[2018-01-22] MEDS ORDERED: Sugammadex Inj 200 MG/2 ML Vial IV.PUSH ONE (13:24)
[2018-01-22] MEDS ORDERED: HYDROmorphone PF Inj 2 MG/ML Vial ONE (14:02)
[2018-01-22] MEDS ORDERED: fentaNYL Citrate Inj 100 MCG/2 ML Ampul ONE ×2 (14:05)
[2018-01-22] MEDS ORDERED: Morphine Inj 4 MG/ML Vial ONE (14:06)
[2018-01-22] MEDS ORDERED: Post-op Orders (for Pharmacy) OTHER ONE (14:11)
[2018-01-22] MEDS ORDERED: Naloxone Inj 0.4 MG/ML Vial IV.PUSH PRN (14:11)
[2018-01-22] MEDS ORDERED: Bisacodyl 10 MG Supp RECTAL PRN (14:11)
[2018-01-22] MEDS ORDERED: *Meperidine Inj 25 MG/ML Vial PERIprocedural Use ONLY ONE (14:12)
[2018-01-22] MEDS ORDERED: *morphine SULFATE 10 MG/ML PERIprocedure ONLY ONE (15:12)
[2018-01-22] MEDS ORDERED: HYDROmorphone PF Inj 2 MG/ML Vial IV.PUSH PRN (15:14)
--- NOTE | 2018-01-22 15:40 | MP ---
cc: Sofy Marquez MD DATE OF OPERATION: 01/22/2018 DATE OF SURGERY: 01/22/2018 PREOPERATIVE DIAGNOSIS: Status post below-knee amputation with several falls and osteomyelitis of the tibia. POSTOPERATIVE DIAGNOSIS: Status post below-knee amputation with several falls and osteomyelitis of the tibia. OPERATIVE PROCEDURE: Left above-knee amputation. SURGEON: Sofy Marquez MD ANESTHESIA: General. ESTIMATED BLOOD LOSS: 200 mL. INDICATIONS FOR PROCEDURE: This 57-year-old male underwent successful below-knee amputation for peripheral vascular disease and gangrene of the foot about 6-8 months ago. The patient did well; however, due to alcohol abuse, fell several times onto the stump, finally got an infection and osteomyelitis, did not present to the hospital or to my office until finally brought him in. At this point, the below-knee amputation is unsalvageable and its open. The patient continues to smoke. DESCRIPTION OF PROCEDURE: The patient was prepped and draped in usual fashion. The outline of the incision was made with a marker and then incision was made in a fish[place] fashion anteriorly, carried down posteriorly, deepened down through the quadriceps tendon, down to the femur and then laterally. The graft is isolated medially, freed up with a hemostat and then transected and allowed to retract. This was of course occluded. Femoral vein is clamped, divided, ligated with 0 Vicryl stick tie, [id number]. The periosteal elevator was used to free up the periosteum of the femur to about 2 inches above the level of the incision in the skin and then the femur was transected with an oscillating saw and posterior flap created with the amputation knife. The specimen was removed. Meticulous hemostasis obtained with 0 Vicryl and 2-0 Vicryl [id number] and cautery. Bone was smoothened out and a sciatic nerve was pulled, cut and allowed to retract. Tissue was irrigated with copious amounts of saline and then incision closed, deep layer to deep layer with 0 Vicryl, superficial to the superficial fascia with 0 Vicryl, skin was closed with 2-0 Prolene and dressing applied. The patient tolerated the procedure well. MD PATRIZIA Ignacio/KEISHA , 03:05 PM , 03:13 PM
[2018-01-22] MEDS: Sod Chloride 0.9% Inj 1,000 ML IV.CONT SCH (15:50)
[2018-01-22] MEDS ORDERED: *morphine SULFATE 4 MG/ML PERIprocedure ONLY ONE (16:07)
[2018-01-22] MEDS: Senna/Docusate Sodium 8.6/50 MG Tablet PO SCH (21:41)
[2018-01-22] MEDS: Morphine Inj 4 MG/ML Vial IV.PUSH PRN (22:46)
[2018-01-22] MEDS: ceFAZolin Inj 1,000 MG in Sodium Chlor 0.9% Inj 100 ML IV.SIG SCH (23:24)
[2018-01-23] MEDS: Sod Chloride 0.9% Inj 1,000 ML IV.CONT SCH ×2 (04:53→15:41)
[2018-01-23] MEDS: ceFAZolin Inj 1,000 MG in Sodium Chlor 0.9% Inj 100 ML IV.SIG SCH ×2 (05:25→14:17)
[2018-01-23] MEDS: Senna/Docusate Sodium 8.6/50 MG Tablet PO SCH ×2 (08:45→20:57)
[2018-01-23] MEDS: Morphine Inj 4 MG/ML Vial IV.PUSH PRN ×4 (10:19→23:23)
[2018-01-23] MEDS: Enoxaparin Inj 40 MG/0.4 ML Syringe SQ SCH ×2 (13:04→15:00)
[2018-01-23] MEDS ORDERED: Sucralfate Liq 1 GM/10 ML UDC PO PRN (14:18)
--- NOTE | 2018-01-23 16:16 | P.PNVS ---
Subjective Subjective/Hospital Course: 01/23/2018 Patient status post left above-knee amputation. Dressing is clean and dry We will keep the dressing on until Friday and after that patient can be transferred to rehab or go home Patient initially refused Lovenox sc for some reason but now agreed to receive it after I explained the risks of not having it. He appears to be pretty nasty to the nurses argumentative and generally disrespectful. Objective Vital Signs / I&O: Vital Signs 01/22/18 16:20 01/22/18 18:12 01/22/18 20:00 Temperature 97.4 F L 97.3 F L 97.6 F Pulse Rate 84 87 92 H Respiratory Rate 15 18 18 Blood Pressure 135/73 148/75 H 156/84 H Pulse Oximetry 99 92 L 94 L 01/23/18 00:00 01/23/18 04:00 01/23/18 09:15 Temperature 97.7 F 97.6 F Pulse Rate 92 H 90 Respiratory Rate 18 18 18 Blood Pressure 149/72 H 149/81 H Pulse Oximetry 94 L 94 L 01/23/18 10:21 01/23/18 13:11 01/23/18 13:15 Temperature 98.6 F 98.2 F Pulse Rate 80 86 Respiratory Rate 18 18 20 Blood Pressure 178/62 H 177/78 H Pulse Oximetry 98 97 01/23/18 13:26 01/23/18 15:00 Temperature Pulse Rate Respiratory Rate 18 18 Blood Pressure Pulse Oximetry Intake & Output 01/22/18 01/23/18 01/23/18 18:59 06:59 18:59 Intake Total 2400 / 2400 1660 / 1660 1100 / 1100 Output Total 200 / 200 Balance 2200 / 2200 1660 / 1660 1100 / 1100 Weight 100 kg 97.9 kg Intake: IV 1100 / 1100 1200 / 1200 1100 / 1100 NS Inj 1,000 ML @ 80 mls/hr IV. 1000 / 1000 1000 / 1000 CONT .[id number] [facility] Rx#:[id number] LR 1000 mL Inj 1,000 ML @ 30 1000 / 1000 mls/hr IV.SIG .Q24H [facility] Rx#: [id number] Zosyn 4.5 GM Premix 4.5 gm In 100 / 100 100 ml @ 300 mls/hr IV.SIG NOW ONE Rx#:[id number] Ancef Inj 1,000 MG In NS Inj 200 / 200 100 / 100 100 ML @ 200 mls/hr IV.SIG Q8H [facility] Rx#:[id number] Oral 460 / 460 Anesthesia Amount 1300 / 1300 Output: Estimated Blood Loss 200 / 200 Other: # Voids 0 Date of Last Bowel Movement 01/21/18 01/21/18 01/22/18 Weight On Admission 100 kg Impressions Chest X-Ray 01/22/18 00:00 CONCLUSION: Negative examination.
[2018-01-23 17:41] VITALS: RESP 20
[2018-01-24] MEDS: Morphine Inj 4 MG/ML Vial IV.PUSH PRN ×2 (04:27→08:03)
[2018-01-24] MEDS: Sod Chloride 0.9% Inj 1,000 ML IV.CONT SCH (04:28)
[2018-01-24] MEDS: Senna/Docusate Sodium 8.6/50 MG Tablet PO SCH (08:04)
--- NOTE | 2018-01-24 11:44 | P.PNVS ---
Subjective Subjective/Hospital Course: 01/23/2018 Patient status post left above-knee amputation. Dressing is clean and dry We will keep the dressing on until Friday and after that patient can be transferred to rehab or go home Patient initially refused Lovenox sc for some reason but now agreed to receive it after I explained the risks of not having it. He appears to be pretty nasty to the nurses argumentative and generally disrespectful. 01/24/2018 Dressing is been removed and incision is clean and dry stump is healing nicely Patient has been warned about falling out of bed and stopping smoking at this time in order for this to get the best chance to heal well It should be noted that as soon as I took the dressing off patient started picking on his incision and I told him not to do so and then 3 minutes later he did the same thing again some not sure how to protect patient from getting this incision infected other than covering it Patient can be discharged from my point any time but has no ride today so we will have to go home tomorrow Objective Vital Signs / I&O: Vital Signs 01/23/18 13:11 01/23/18 13:15 01/23/18 13:26 Temperature 98.6 F 98.2 F Pulse Rate 80 86 Respiratory Rate 18 20 18 Blood Pressure 178/62 H 177/78 H Pulse Oximetry 98 97 01/23/18 15:00 01/23/18 17:40 01/23/18 20:00 Temperature 98.2 F 97.3 F L Pulse Rate 68 84 Respiratory Rate 18 20 20 Blood Pressure 168/70 H 175/82 H Pulse Oximetry 96 01/24/18 00:00 01/24/18 04:00 01/24/18 08:00 Temperature 97.9 F 97.4 F L 97.7 F Pulse Rate 80 80 70 Respiratory Rate 20 20 20 Blood Pressure 160/80 H 169/86 H 163/78 H Pulse Oximetry 95 963 H 97 Intake & Output 01/23/18 01/24/18 01/24/18 18:59 06:59 18:59 Intake Total 1100 / 1100 600 / 600 Output Total 750 / 750 Balance 1100 / 1100 -150 / -150 Weight 97.9 kg Intake: IV 1100 / 1100 NS Inj 1,000 ML @ 80 mls/hr IV. 1000 / 1000 CONT .[id number] [facility] Rx#:[id number] Ancef Inj 1,000 MG In NS Inj 100 / 100 100 ML @ 200 mls/hr IV.SIG Q8H [facility] Rx#:[id number] Oral 600 / 600 Output: Urine 750 / 750 Other: # Voids 3 Date of Last Bowel Movement 01/22/18 01/21/18 01/22/18
[2018-01-24] MEDS: Enoxaparin Inj 40 MG/0.4 ML Syringe SQ SCH (12:11)
[2018-01-24 13:11] VITALS: BP 172/86; PULSE 91; TEMP 97.9; O2SAT 98
== END 2018-01-24 14:37 | disposition home or self-care (01) ==
LOC: HSDI 07:59 → N06 16:43
PROVIDERS: ADMIT Surgery; ATTEND Surgery